=== PATIENT | female | born 2000 | race Caucasian/White ===

== ENCOUNTER 2021-03-06 15:45 | Emergency (ER) | payer OTHER ==
[~2021-03-06] VITALS: Ht 175.3 cm; Wt 104.5 kg
[2021-03-06 16:44] VITALS: BP 141/97
--- NOTE | 2021-03-06 18:06 | NUR ---
Patient unable to wait any longer. I attempted to speak with patient regarding wait times. Patient left before I was able to get out to the lobby. Dr. Gleason aware.
== END 2021-03-06 18:07 | disposition left against medical advice (07) ==
LOC: ER 15:47
DX: R19.7 Diarrhea, unspecified (principal); Z53.21 Procedure and treatment not carried out due to patient leaving prior to being seen by health care provider